=== PATIENT | female | born 1960 | race Caucasian/White ===

== ENCOUNTER 2017-03-22 10:42 | Inpatient (IN) | payer BC, OTHER ==
[~2017-03-22] VITALS: Ht 167.6 cm; Wt 75.7 kg
[2017-03-22] VITALS (29 sets, daily range): BP systolic 98–163; BP diastolic 67–111
[2017-03-22] MEDS ORDERED: ONDANSETRON HCL 4MG/2ML VIAL IV STA (11:07)
[2017-03-22] MEDS ORDERED: SODIUM CHLORIDE 0.9% 1,000 ML IV ONE ×2 (11:07→12:16)
[2017-03-22 11:41] LABS: HEMATOCRIT. 38.8 % (36.0-48.0); HEMOGLOBIN. 12.9 g/dL (12.0-16.0); MEAN CORPUSCULAR HEMOGLOBIN 30.4 pg (28.0-32.0); MEAN CORPUSCULAR HGB CONC 33.2 g/dL (31.0-37.0); MEAN CORPUSCULAR VOLUME 91.7 fL (81.0-99.0); MEAN PLATELET VOLUME 10.1 fl (7.4-10.4); PLATELET 163 x1000/uL (130-400); RED BLOOD CELL COUNT 4.23 mill/uL (4.2-5.4); RED CELL DISTRIBUTION WIDTH 16.1 % (11.6-14.6)
[2017-03-22 11:46] LABS: CHLORIDE 93 mEq/L (98-107); INDEX HEMOLYSI 4 (1-3); INDEX ICTERIC 1 (1-4); INDEX LIPEMIC 1 (1-3)
[2017-03-22 11:49] LABS: CLARITY URINE TURBID (CLEAR); COLOR URINE DARK YELLOW (YELLOW); GLUCOSE URINE 2+ (NEGATIVE); KETONES URINE TRACE (NEGATIVE); LEUKOCYTE ESTERASE URINE 3+ (NEGATIVE); NITRITE URINE NEGATIVE (NEGATIVE); OCCULT BLOOD URINE 3+ (NEGATIVE); PROTEIN URINE 1+ (NEGATIVE); SPECIFIC GRAVITY URINE 1.021 (1.005-1.030)
[2017-03-22 11:52] LABS: DIFFERENTIAL COMMENT 1
[2017-03-22 11:58] LABS: ALANINE AMINOTRANSFERASE 56 IU/L (13-61); ALBUMIN 2.8 g/dL (3.4-5.0); ANION GAP 22; CALCIUM 8.8 mg/dL (8.5-10.1); CARBON DIOXIDE 20 mEq/L (21-32); NT PRO B-TYPE NATRIURETIC PEP 12439 pg/mL (5-125); UREA NITROGEN BLOOD 40 mg/dL (7-21); eGFR 19 mL/min (>60)
[2017-03-22 12:09] LABS: WBC URINE 50-100 /hpf (0-2)
[2017-03-22 12:10] LABS: BACTERIA URINE 2+; MUCUS URINE 3+ /lpf (< = 2+); SQUAMOUS EPITHELIAL CELL URINE FEW /lpf (RARE/1+)
[2017-03-22 12:12] LABS: INR 1.2; PROTHROMBIN TIME 12.7 sec
[2017-03-22 12:40] LABS: PLATELET ESTIMATE NORMAL
[2017-03-22] MEDS ORDERED: CEFTRIAXONE 1 G PREMIX 50 ML IV ONE (12:45)
[2017-03-22 12:55] LABS: LACTIC ACID 3.8 mmol/L (0.4-2.0)
[2017-03-22] MEDS ORDERED: ASPIRIN 325MG TABLET PO ONE (13:00)
[2017-03-22] MEDS ORDERED: SODIUM CHLORIDE 0.9% 500 ML IV ONE (13:00)
[2017-03-22] MEDS ORDERED: ENOXAPARIN 80MG/0.8ML SYR SUBCUT ONE (13:30)
[2017-03-22] MEDS ORDERED: NOREPINEPHRINE 4 MG in DEXT 5% WATER 246 ML IV ONE ×4 (15:15)
[2017-03-22] MEDS ORDERED: ONDANSETRON HCL 4MG/2ML VIAL IV PRN (17:15)
[2017-03-22] MEDS ORDERED: ACETAMINOPHEN 325MG TABLET PO PRN (17:15)
[2017-03-22] MEDS ORDERED: MAGNESIUM/ALUMINUM HYDROXIDE/SIMETHICONE 30ML UDC PO PRN (17:15)
[2017-03-22] MEDS ORDERED: DEXTROSE 50% WATER 50ML SYRINGE IV PRN (17:15)
[2017-03-22] MEDS ORDERED: LEVOFLOXACIN 500MG PREMIX 100 ML IV NR (18:00)
[2017-03-22] MEDS: HYDROCODONE/ACETAMINOPHEN 5/325MG TABLET PO PRN (18:00)
[2017-03-22] MEDS ORDERED: METF10002 PO (18:55)
[2017-03-22] MEDS ORDERED: SITA100T6 PO (18:55)
[2017-03-22] MEDS ORDERED: GLIP10TA10 PO (18:55)
[2017-03-22] MEDS ORDERED: SIMV10TA6 PO (18:55)
[2017-03-22] MEDS: SODIUM CHLORIDE 0.9% 1,000 ML IV SCH (19:22)
[2017-03-22] MEDS ORDERED: GENTAMICIN 120MG PREMIX 100 ML IV SCH (20:00)
[2017-03-22] MEDS ORDERED: GENTAMICIN SULFATE 160 MG in SODIUM CHLORIDE 0.9% 100 ML IV SCH (20:00)
[2017-03-22] MEDS: BLOOD SUGAR DIAGNOSTIC STRIP TEST SCH (20:37)
[2017-03-22] MEDS: OMEPRAZOLE 20MG CAPSULE EXTENDED RELEASE PO SCH (20:37)
[2017-03-22] MEDS: INSULIN LISPRO 100 UNITS/ML SUBCUT SCH (20:41)
[2017-03-23] VITALS (49 sets, daily range): BP systolic 80–128; BP diastolic 45–103
[2017-03-23] MEDS: HYDROCODONE/ACETAMINOPHEN 5/325MG TABLET PO PRN ×4 (01:06→21:09)
[2017-03-23] MEDS: SODIUM CHLORIDE 0.9% 1,000 ML IV SCH ×4 (01:12→20:50)
[2017-03-23] MEDS: BLOOD SUGAR DIAGNOSTIC STRIP TEST SCH ×4 (05:30→21:10)
[2017-03-23] MEDS: OMEPRAZOLE 20MG CAPSULE EXTENDED RELEASE PO SCH ×2 (05:35→20:49)
[2017-03-23 05:37] LABS: HEMATOCRIT. 32.6 % (36.0-48.0); HEMOGLOBIN. 10.9 g/dL (12.0-16.0); MEAN CORPUSCULAR HEMOGLOBIN 30.3 pg (28.0-32.0); MEAN CORPUSCULAR HGB CONC 33.4 g/dL (31.0-37.0); MEAN CORPUSCULAR VOLUME 90.7 fL (81.0-99.0); MEAN PLATELET VOLUME 10.7 fl (7.4-10.4); PLATELET 125 x1000/uL (130-400); WHITE BLOOD COUNT 16.2 x1000/uL (4.5-11.0)
[2017-03-23 05:42] LABS: DIFFERENTIAL COMMENT 1
[2017-03-23] MEDS: INSULIN LISPRO 100 UNITS/ML SUBCUT SCH ×4 (06:03→21:09)
[2017-03-23 06:15] LABS: CALCIUM 7.3 mg/dL (8.5-10.1); MAGNESIUM 1.8 mg/dL (1.8-2.4)
[2017-03-23] MEDS ORDERED: MAGNESIUM 1 G PREMIX 100 ML IV SCH (08:30)
[2017-03-23] MEDS ORDERED: ASPIRIN 81MG EC TABLET PO SCH (09:00)
[2017-03-23 09:18] LABS: PLATELET ESTIMATE SLIGHTLY DECREASED
[2017-03-23] MEDS ORDERED: INSULIN DETEMIR UD 100 UNITS/ML SYR SUBCUT SCH ×2 (10:00)
[2017-03-23] MEDS ORDERED: LEVOFLOXACIN 250MG PREMIX 50 ML IV SCH (11:00)
[2017-03-23] MEDS ORDERED: GENTAMICIN SULFATE 160 MG in SODIUM CHLORIDE 0.9% 100 ML IV SCH (21:00)
== END 2017-03-23 22:50 | disposition short-term general hospital (02) | DRG 720 ==
LOC: ER 12:03 → MICUSO 14:59
PROVIDERS: ADMIT Internal Medicine; ATTEND Internal Medicine
PROC: 05H933Z Insertion of Infusion Device into Right Brachial Vein, Percutaneous Approach (ICD-10-PCS; principal; 2017-03-22)
PROC: B54MZZA Ultrasonography of Right Upper Extremity Veins, Guidance (ICD-10-PCS; 2017-03-22)
DX: A41.9 Sepsis, unspecified organism (principal); I21.4 Non-ST elevation (NSTEMI) myocardial infarction; R65.21 Severe sepsis with septic shock; N17.9 Acute kidney failure, unspecified; E11.9 Type 2 diabetes mellitus without complications; N39.0 Urinary tract infection, site not specified; D64.9 Anemia, unspecified; E66.9 Obesity, unspecified; B96.89 Other specified bacterial agents as the cause of diseases classified elsewhere; Z83.3 Family history of diabetes mellitus; I25.2 Old myocardial infarction; Z90.49 Acquired absence of other specified parts of digestive tract; Z98.51 Tubal ligation status; Z68.27 Body mass index [BMI] 27.0-27.9, adult
CPT/HCPCS: 36415; 36569; 71010; 76770; 76937; 80048; 80053; 80061; 81001; 82962; 83036; 83605; 83735; 83880; 84484; 85025; 85610; 87040; 87077; 87086; 87186; 93005; 93306; 93970; 96361; 96365; 96375; 99291; C1725; J0696; J1580; J1650; J1815; J1956; J2405; J3475; J3490; J7030; J7040; J7050; J7060